=== PATIENT | female | born 1945 | race Caucasian/White ===

== ENCOUNTER 2018-02-23 09:30 | Emergency (ER) | payer MEDICARE, MEDICAID ==
[~2018-02-23] VITALS: Ht 157.5 cm; Wt 81.8 kg
[~2018-02-23 09:30] MED LIST: AMLO5TAB66 PO; ASPI-1198 PO; CALC-724 PO; FERR-48 PO; GLIP10 PO; HYDROCHLORTHIAZIDE PO; INSLAN SQ; INSNOV SQ; LOSA25TA16 PO; PIOG1TAB38; SIMV-260 PO
[2018-02-23 09:43] LABS: GLUCOSE,POINT OF CARE 132 MG/DL (70-110)
[2018-02-23] MEDS ORDERED: VITAD1000 PO (09:59)
[2018-02-23] MEDS ORDERED: METO-296 PO (09:59)
[2018-02-23] MEDS ORDERED: REPA2 PO ×2 (09:59→10:12)
[2018-02-23] MEDS ORDERED: CYAN500 PO (09:59)
[2018-02-23] MEDS ORDERED: CALC-261 PO (09:59)
[2018-02-23] MEDS ORDERED: INSLAN SQ (10:12)
[2018-02-23] MEDS ORDERED: TICA90TA PO ×2 (10:12)
[2018-02-23] MEDS ORDERED: CHL25 PO (10:12)
[2018-02-23] MEDS ORDERED: RANO500T3 PO (10:12)
[2018-02-23] MEDS ORDERED: DSS100 PO (10:12)
[2018-02-23] MEDS ORDERED: SUCR1TAB PO (10:12)
[2018-02-23] MEDS ORDERED: FOLI1 PO (10:12)
[2018-02-23] MEDS ORDERED: METO25XL PO (10:12)
[2018-02-23] MEDS ORDERED: ATOR40TA28 PO (10:12)
[2018-02-23] MEDS ORDERED: ISOS60TA4 PO (10:12)
[2018-02-23] MEDS ORDERED: LEVO25TA9 PO (10:12)
[2018-02-23] MEDS ORDERED: LEVO100 PO (10:12)
[2018-02-23 13:17] VITALS: BP 120/82
== END 2018-02-23 14:01 | disposition home or self-care (01) ==
LOC: EMS 09:30
DX: R04.0 Epistaxis (principal); I10 Essential (primary) hypertension; E78.00 Pure hypercholesterolemia, unspecified; E11.9 Type 2 diabetes mellitus without complications; E03.9 Hypothyroidism, unspecified; Z79.4 Long term (current) use of insulin; Z79.899 Other long term (current) drug therapy
CPT/HCPCS: 30901

== ENCOUNTER 2018-02-24 16:13 | Emergency (ER) | payer MEDICARE, MEDICAID ==
[~2018-02-24] VITALS: Ht 147.3 cm; Wt 54.5 kg
[~2018-02-24 16:13] MED LIST changes: +ATOR40TA28 PO; +CALC-261 PO; +CHL25 PO; +CYAN500 PO; +DSS100 PO; +FOLI1 PO; +ISOS60TA4 PO; +LEVO100 PO; +LEVO25TA9 PO; +METO-296 PO; +METO25XL PO; +RANO500T3 PO; +REPA2 PO; +SUCR1TAB PO; +TICA90TA PO; +VITAD1000 PO
[2018-02-24 16:33] LABS: GLUCOSE,POINT OF CARE 165 MG/DL (70-110)
[2018-02-24 17:16] LABS: BASOPHILS % (AUTO) 0.5 % (0.0-2.0); EOSINOPHILS % (AUTO) 0.2 % (1.0-6.0); HEMATOCRIT 28.4 % (36-46); HEMOGLOBIN 9.7 g/dL (12.0-16.0); LYMPHOCYTES # (AUTO) 1.3 K/uL (1.0-4.8); LYMPHOCYTES % (AUTO) 10.1 % (22.0-44.0); MEAN CORPUSCULAR HEMOGLOBIN 30.9 pg (26.0-34.0); MEAN CORPUSCULAR VOLUME 91 fL (80-100); MONOCYTES # (AUTO) 0.7 K/uL (0.1-1.0); MONOCYTES % (AUTO) 5.3 % (2.0-9.0); NEUTROPHILS # (AUTO) 10.9 K/uL (1.8-7.7); NEUTROPHILS % (AUTO) 83.9 % (40.0-70.0); PLATELET COUNT (AUTO) 256 K/uL (150-450); RED BLOOD CELL COUNT(AUTO) 3.13 MIL/uL (4.00-5.20); RED CELL DISTRIBUTION WIDTH 12.7 % (11.5-14.5)
[2018-02-24 17:26] LABS: PROTHROMBIN TIME 10.7 SEC (9.4-11.6)
[2018-02-24 19:03] VITALS: BP 133/57
== END 2018-02-24 19:13 | disposition home or self-care (01) ==
LOC: EMS 16:14
DX: R04.0 Epistaxis (principal); E11.9 Type 2 diabetes mellitus without complications; E78.00 Pure hypercholesterolemia, unspecified; I10 Essential (primary) hypertension; E03.9 Hypothyroidism, unspecified; Z79.4 Long term (current) use of insulin; Z79.84 Long term (current) use of oral hypoglycemic drugs; Z79.01 Long term (current) use of anticoagulants
CPT/HCPCS: 30901